=== PATIENT | female | born 1990 | race Caucasian/White ===

== ENCOUNTER → 2016-07-29 | Outpatient (REF) | payer BC, OTHER ==
[~2016-07-29] MED LIST: ACET50TA PO; IBUP600T26 PO; IBUP80TA PO; PRENTAB9 PO
== END ==
LOC: M LAB REF 16:49
PROVIDERS: ATTEND Specialist
DX: Z12.4 Encounter for screening for malignant neoplasm of cervix (principal)

== ENCOUNTER → 2016-09-06 | Outpatient (REF) | payer BC, OTHER ==
[~2016-09-06] MED LIST changes: +CIPR-249 PO; +DICY20TA11 PO; +ULTR50TA8 PO; +ZOFR4TAB3 PO
== END ==
LOC: M LAB REF 17:18
PROVIDERS: ATTEND Specialist
DX: N87.0 Mild cervical dysplasia (principal)

== ENCOUNTER 2016-09-11 14:10 | Emergency (ER) | payer BC, OTHER ==
[~2016-09-11] VITALS: Ht 162.6 cm; Wt 53.7 kg
[~2016-09-11 14:10] MED LIST changes: -CIPR-249 PO; -DICY20TA11 PO; -ULTR50TA8 PO; -ZOFR4TAB3 PO
[2016-09-11] MEDS ORDERED: NS 500 ML IV ONE (14:30)
[2016-09-11] MEDS ORDERED: KETOROLAC 30 MG/ML VIAL (J1885) IV ONE (14:30)
[2016-09-11 14:55] LABS: BASO # 0.1 K/mm3 (0.0-0.2); BASO % 1.3 % (0.0-1.0); EOS % 0.2 % (0.0-3.0); LARGE UNSTAINED CELL # 0.1 K/mm3 (0.0-0.4); LARGE UNSTAINED CELL % 1.6 % (0.0-4.0); LYMPH # 0.4 K/mm3 (1.5-6.5); LYMPH % 4.1 % (24.0-44.0); MEAN CORPUSCULAR HEMOGLOBIN 29.3 pg (27.0-33.0); MEAN CORPUSCULAR HGB CONC 33.1 g/dl (32.0-36.5); MEAN CORPUSCULAR VOLUME 88.5 fl (80.0-96.0); MONO # 0.6 K/mm3 (0.0-0.8); MONO % 6.8 % (0.0-5.0); NEUTROPHILS # 7.5 K/mm3 (1.8-7.7); NEUTROPHILS % 86.1 % (36.0-66.0); PLATELET COUNT, AUTOMATED 189 k/mm3 (150-450); RED CELL DISTRIBUTION WIDTH 13.3 % (11.5-14.5); WHITE BLOOD COUNT 8.6 K/mm3 (4.0-10.0)
[2016-09-11 15:13] LABS: ALBUMIN/GLOBULIN RATIO 1.14 (1.00-1.93); ALKALINE PHOSPHATASE 44 U/L (45-117); ALT/SGPT 16 U/L (12-78); AMYLASE 28 U/L (25-115); ANION GAP 7 MEQ/L (8-16); AST/SGOT 12 U/L (15-37); BILIRUBIN,DIRECT 0.1 MG/DL (0.0-0.2); BILIRUBIN,TOTAL 0.4 MG/DL (0.2-1.0); BLOOD UREA NITROGEN 8 MG/DL (7-18); CALCIUM LEVEL 8.8 MG/DL (8.5-10.1); CARBON DIOXIDE LEVEL 27 MEQ/L (21-32); CHLORIDE LEVEL 102 MEQ/L (98-107); CREATININE FOR GFR 0.62 MG/DL (0.55-1.02); GLOMERULAR FILTRATION RATE > 60.0 (>60); GLUCOSE, FASTING 97 MG/DL (70-105); POTASSIUM SERUM 3.4 MEQ/L (3.5-5.1); SODIUM LEVEL 136 MEQ/L (136-145); TOTAL PROTEIN 7.5 GM/DL (6.4-8.2)
[2016-09-11] MEDS ORDERED: ACETAMINOPHEN 325 MG TAB PO ONE (15:30)
[2016-09-11 15:59] VITALS: BP 101/62
[2016-09-11] MEDS ORDERED: CIPR-249 PO (16:17)
[2016-09-11] MEDS ORDERED: ZOFR4TAB3 PO (16:17)
[2016-09-11] MEDS ORDERED: ULTR50TA8 PO (16:17)
--- NOTE | 2016-09-12 12:11 | REP ---
RIGHT UPPER QUADRANT ULTRASOUND: 09/11/2016. Clinical history: Right upper quadrant pain, nausea and vomiting. Pain radiates to back. Evaluate for acute cholecystitis or other. There are no prior abdominal ultrasounds. A renal ultrasound 07/20/2008 is reviewed. Sonographic evaluation of the right upper quadrant shows the liver homogeneous in echotexture. There is no focal hepatic mass, intrahepatic biliary dilatation nor adjacent ascites. The gallbladder shows small echogenic but nonshadowing foci which were not mobile. These may be adherent stones or small polyps, the largest of these is 6 mm. The wall thickness is 2.5 mm maximum. No pericholecystic fluid. No sonographic Guerra sign. The common duct is 2.4 mm without dilatation or stone. Pancreas is unremarkable. The right kidney measures 11.5 x 6.5 x 3.8 cm. There is an extrarenal pelvis but the hydronephrosis on the 2008 study is resolved. That was related to hydronephrosis of . Impression: 1. There are a few echogenic nonshadowing foci in the gallbladder wall which are not mobile, the largest of which is 6 mm suggesting a polyp versus adherent stone. No sonographic Guerra sign. Normal wall thickness 2.5 mm with no pericholecystic fluid. 2. The liver homogeneous without focal mass, biliary dilatation or ascites. 3. Common duct 2.4 mm unremarkable. Pancreas and right kidney without acute finding. Signed by Martell Bautista MD 09/12/2016 09:31 A
--- NOTE | 2016-09-12 18:45 | ED PDOC ---
Post-Departure Follow-Up radiology report faxed to Ines Aguilar MD Sep 12, 2016 18:45
[2016-11-07] MEDS ORDERED: DICY20TA11 PO (14:02)
== END 2016-09-11 16:31 | disposition home or self-care (01) ==
LOC: M ED 15:51
DX: K80.20 Calculus of gallbladder without cholecystitis without obstruction (principal)

== ENCOUNTER → 2016-11-08 | Outpatient (CLI) | payer OTHER ==
[~2016-11-08] MED LIST changes: +CIPR-249 PO; +DICY20TA11 PO; +ULTR50TA8 PO; +ZOFR4TAB3 PO
[2016-11-08 13:40] LABS: FREE T4 0.92 NG/DL (0.76-1.46)
== END ==
LOC: M LAB 12:20
PROVIDERS: ATTEND Internal Medicine Gastroenterology
DX: R63.4 Abnormal weight loss (principal)

== ENCOUNTER 2016-11-11 13:27 | Outpatient (CLI) | payer OTHER ==
[~2016-11-11] VITALS: Ht 162.6 cm; Wt 52.2 kg
[2016-11-11] MEDS ORDERED: NS 1,000 ML IV ONE (13:30)
[2016-11-11] MEDS ORDERED: PROPOFOL 200 MG/20 ML VIAL As Ordered ONE (14:38)
[2016-11-11] MEDS ORDERED: LIDOCAINE 2% INJ 100 MG/5 ML SDV (FOR ANES.) As Ordered ONE (14:44)
--- NOTE | 2016-11-11 15:06 | ROOR ---
Patient Name: Maureen Paulino Procedure Date: 11/11/2016 2:50 PM Date of : 1990 Age: 26 Room: [facility] Gender: Female Note Status: Finalized Procedure: Upper GI endoscopy Indications: Epigastric abdominal pain, Diarrhea, Endoscopy to assess diarrhea in patient suspected of having disease of the small-bowel Providers: Jose Eduardo REED MD Referring MD: 1. No Referring Physician 1. No Referring Physician, Admin. Requesting Provider: Medicines: Monitored Anesthesia Care Complications: No immediate complications. Procedure: Pre-Anesthesia Assessment: - The heart rate, respiratory rate, oxygen saturations, blood pressure, adequacy of pulmonary ventilation, and response to care were monitored throughout the procedure. The Endoscope was introduced through the mouth, and advanced to the second part of duodenum. The upper GI endoscopy was accomplished without difficulty. The patient tolerated the procedure well. Findings: The esophagus was normal. The stomach was normal. The examined duodenum was normal. Biopsies for histology were taken with a cold forceps in the third portion of the duodenum for evaluation of celiac disease. Impression: - Normal esophagus. - Normal stomach. - Normal examined duodenum. - Biopsies were taken with a cold forceps for evaluation of celiac disease. Recommendation: - Await pathology results. - Telephone endoscopist for pathology results in 2 weeks. - Stop Dicyclomine, start Hyoscyamine (script sent to your pharmacy) Jose Eduardo Reed MD Jose Eduardo REED MD 11/11/2016 3:05:57 PM This report has been signed electronically. Number of Addenda: 0 Note Initiated On: 11/11/2016 2:50 PM Estimated Blood Loss: Estimated blood loss: none.
--- NOTE | 2016-11-11 15:37 | ROOR ---
Patient Name: Maureen Paulino Procedure Date: 11/11/2016 2:51 PM Date of : 1990 Age: 26 Room: [facility] Gender: Female Note Status: Finalized Procedure: Colonoscopy Indications: Generalized abdominal pain, Irritable bowel syndrome with diarrhea, Diarrhea Providers: Jose Eduardo REED MD Referring MD: 1. No Referring Physician 1. No Referring Physician, Admin. Requesting Provider: Medicines: Monitored Anesthesia Care Complications: No immediate complications. Procedure: Pre-Anesthesia Assessment: - The heart rate, respiratory rate, oxygen saturations, blood pressure, adequacy of pulmonary ventilation, and response to care were monitored throughout the procedure. The Colonoscope was introduced through the anus and advanced to 5 cm into the ileum. The colonoscopy was performed without difficulty. The patient tolerated the procedure well. The quality of the bowel preparation was good. Findings: The perianal and digital rectal examinations were normal. The entire examined colon appeared normal on direct and retroflexion views. A localized area of mucosa in the terminal ileum was nodular. Biopsies were taken with a cold forceps for histology. Impression: - The entire colon is normal on direct and retroflexion views. - Normal terminal ileum with an area of nodular mucosa . Biopsied. Recommendation: - Use fiber, for example Citrucel, Fibercon, Konsyl or Metamucil. - Use Levbid 0.375 mg Extended Tabs 1 tab PO BID. - Telephone endoscopist for pathology results in 2 weeks. - Stop Dicyclomine, start Hyoscyamine.(script sent to your pharmacy). Jose Eduardo Reed MD Jose Eduardo REED MD 11/11/2016 3:37:06 PM This report has been signed electronically. Number of Addenda: 0 Note Initiated On: 11/11/2016 2:51 PM Estimated Blood Loss: Estimated blood loss: none.
[2016-11-11 15:45] VITALS: BP 116/78
== END 2016-11-11 15:50 | disposition home or self-care (01) ==
LOC: M OPP 13:27
PROVIDERS: ATTEND Internal Medicine Gastroenterology
DX: R10.84 Generalized abdominal pain (principal); K58.0 Irritable bowel syndrome with diarrhea; K63.89 Other specified diseases of intestine; R10.13 Epigastric pain; R11.0 Nausea; Z79.899 Other long term (current) drug therapy; Z80.9 Family history of malignant neoplasm, unspecified

== ENCOUNTER 2017-04-08 13:01 | Emergency (ER) | payer OTHER ==
[2017-04-08] MEDS: BACTRIM 160MG/800MG DS TAB PO (14:58)
== END 2017-04-08 15:05 | disposition home or self-care (01) ==
LOC: M ED 13:01
DX: S02.2XXA Fracture of nasal bones, initial encounter for closed fracture (principal); S00.81XA Abrasion of other part of head, initial encounter; S00.83XA Contusion of other part of head, initial encounter; Y04.2XXA Assault by strike against or bumped into by another person, initial encounter; Y92.099 Unspecified place in other non-institutional residence as the place of occurrence of the external cause; Y93.9 Activity, unspecified
CPT/HCPCS: 70450

== ENCOUNTER → 2017-06-08 | Outpatient (REF) | payer OTHER | LOC: M LAB REF 12:51 | DX: N39.0 Urinary tract infection, site not specified (principal) ==

== ENCOUNTER → 2017-09-12 | Outpatient (REF) | payer OTHER | LOC: M LAB REF 12:04 | DX: N39.0 Urinary tract infection, site not specified (principal) ==

== ENCOUNTER → 2017-10-24 | Outpatient (REF) | payer OTHER ==
[2017-10-26 14:17] LABS: HPV HYBRID CAPTURE II Negative (Negative)
== END ==
LOC: M LAB REF 17:57
DX: Z11.51 Encounter for screening for human papillomavirus (HPV) (principal)
CPT/HCPCS: G0123

== ENCOUNTER → 2017-12-28 | Outpatient (REF) | payer OTHER | LOC: M LAB REF 17:04 | DX: R35.0 Frequency of micturition (principal) ==

== ENCOUNTER → 2018-04-21 | Outpatient (REF) | payer OTHER ==
[~2018-04-21] MED LIST changes: +BACT800T5 PO; +KEFL500C17 PO; +ZOFR4TAB14 PO; -ZOFR4TAB3 PO
== END ==
LOC: M LAB REF 10:56
PROVIDERS: ATTEND Physician Assistant
DX: N39.0 Urinary tract infection, site not specified (principal)

== ENCOUNTER 2018-05-04 13:07 | Day surgery (SDC) | payer OTHER ==
[~2018-05-04] VITALS: Ht 162.6 cm; Wt 53.5 kg
[~2018-05-04 13:07] MED LIST changes: +KETOROLAC 60 MG/2 ML VIAL (J1885) As Ordered ONE; +LIDOCAINE 2% INJ 100 MG/5 ML SDV (FOR ANES.) As Ordered ONE; +LR 1,000 ML IV ONE; +MIDAZOLAM INJ 2 MG/2 ML VIAL (J2250) As Ordered ONE; +ONDANSETRON 4MG/2ML VIAL (J2405) As Ordered ONE; +PROPOFOL 200 MG/20 ML VIAL As Ordered ONE; +dexameTHASONE 4 MG/ML 1ML VIAL (J1100) As Ordered ONE; +fentaNYL 100 MCG/2 ML INJECTION (J3010) As Ordered ONE
[2018-05-04 13:36] LABS: HEMOGLOBIN 12.8 g/dl (12.0-15.5); MEAN CORPUSCULAR HGB CONC 32.8 g/dl (32.0-36.5); MEAN CORPUSCULAR VOLUME 91.5 fl (80.0-96.0); PLATELET COUNT, AUTOMATED 244 10^3/uL (150-450); RED BLOOD COUNT 4.26 10^6/uL (4.00-5.40); WHITE BLOOD COUNT 8.6 10^3/uL (4.0-10.0)
[2018-05-04 13:39] LABS: URINE PREG TEST NEGATIVE (NEGATIVE)
[2018-05-04] MEDS ORDERED: LR 1,000 ML IV SCH (15:00)
[2018-05-04] MEDS ORDERED: HYDROMORPHONE HCL 0.5 MG/ 0.5 ML SYRINGE (J1170 PER 1) IV PRN (15:15)
[2018-05-04] MEDS ORDERED: fentaNYL 100 MCG/2 ML INJECTION (J3010) IV PRN (15:15)
[2018-05-04] MEDS ORDERED: PERCOCET 5MG/325MG TAB PO PRN ×2 (15:15)
[2018-05-04] MEDS ORDERED: OXYC1TAB23 PO (15:30)
[2018-05-04 16:25] VITALS: BP 127/81
--- NOTE | 2018-05-07 15:03 | RO ---
DATE OF PROCEDURE: 05/04/2018 PREOPERATIVE DIAGNOSIS: Menorrhagia. POSTOPERATIVE DIAGNOSIS: Menorrhagia. PROCEDURE: Hysteroscopy, dilation and curettage, NovaSure endometrial ablation. SURGEON: Rush Daniel MD GAS TORCH BRAZIER: ANESTHESIA: General endotracheal. ESTIMATED BLOOD LOSS: Minimal. URINE OUTPUT: 30 mL. FINDINGS: Normal endometrial cavity. Normal retroverted uterus. OPERATIVE SUMMARY: The patient was taken to the operating room where general endotracheal anesthesia was induced. She was prepped and draped in sterile fashion in the dorsal lithotomy position. The bladder was then secured to the catheter. A speculum was placed. The anterior lip of the cervix was grasped with a tenaculum. The cervix was dilated with tapered dilators. A sharp curettage was performed and the specimen was sent to pathology. Uterine cavity length was calculated 4.0 cm. A NovaSure device was assembled and found to be in working order. The device was inserted through the internal os. Cavity width was 4.6 cm. Total power setting was 101 godfrey. A successful cavity assessment was performed. The device was enabled and coagulation was initiated. Total coagulation time was 2 minutes. The device was removed. The hysteroscope was placed back in the endometrial cavity and excellent coagulation was noted throughout the endometria. All instruments were removed. Sponge and instrument counts were correct. The patient went to recovery room in stable condition.
== END 2018-05-04 16:35 | disposition home or self-care (01) ==
LOC: M SDC 13:07
PROVIDERS: ATTEND Specialist
DX: N92.0 Excessive and frequent menstruation with regular cycle (principal)
CPT/HCPCS: 36415; 58563; 84703; 85027; 88305; J1100; J1885; J2250; J2405; J3010

== ENCOUNTER 2018-05-15 12:34 | Emergency (ER) | payer OTHER ==
[~2018-05-15] VITALS: Ht 162.6 cm; Wt 54.5 kg
[2018-05-15 12:34] VITALS: BP 152/95
[~2018-05-15 12:34] MED LIST changes: -KETOROLAC 60 MG/2 ML VIAL (J1885) As Ordered ONE; -LIDOCAINE 2% INJ 100 MG/5 ML SDV (FOR ANES.) As Ordered ONE; -LR 1,000 ML IV ONE; -MIDAZOLAM INJ 2 MG/2 ML VIAL (J2250) As Ordered ONE; -ONDANSETRON 4MG/2ML VIAL (J2405) As Ordered ONE; +OXYC1TAB23 PO; -PROPOFOL 200 MG/20 ML VIAL As Ordered ONE; -dexameTHASONE 4 MG/ML 1ML VIAL (J1100) As Ordered ONE; -fentaNYL 100 MCG/2 ML INJECTION (J3010) As Ordered ONE
--- NOTE | 2018-05-15 13:07 | REP ---
Clinical: Trauma. Technique: AP, lateral, bilateral oblique views of the right hand. Findings: Oblique nondisplaced fracture of the fifth metacarpal diaphysis noted. Remainder examination is normal. Impression: Oblique fracture of the fifth metacarpal shaft. Electronically Signed by Evens Swan MD 05/15/2018 12:59 P
== END 2018-05-15 15:00 | disposition home or self-care (01) ==
LOC: M ED 12:34
DX: S62.356A Nondisplaced fracture of shaft of fifth metacarpal bone, right hand, initial encounter for closed fracture (principal); W01.198A Fall on same level from slipping, tripping and stumbling with subsequent striking against other object, initial encounter; Y92.89 Other specified places as the place of occurrence of the external cause; Y99.0 Civilian activity done for income or pay

== ENCOUNTER → 2018-09-15 | Outpatient (REF) | payer OTHER ==
[~2018-09-15] MED LIST changes: -ACET50TA PO; +MAPA500T17 PO
== END ==
LOC: M LAB REF 12:30
PROVIDERS: ATTEND Physician Assistant Medical
DX: N39.0 Urinary tract infection, site not specified (principal)

== ENCOUNTER → 2018-09-25 | Outpatient (REF) | payer OTHER ==
[2018-09-28 00:07] LABS: HPV HYBRID CAPTURE II Positive (Negative)
== END ==
LOC: M LAB REF 13:22
PROVIDERS: ATTEND Specialist
DX: Z12.4 Encounter for screening for malignant neoplasm of cervix (principal); R87.612 Low grade squamous intraepithelial lesion on cytologic smear of cervix (LGSIL)
CPT/HCPCS: 87624; G0123

== ENCOUNTER → 2018-11-07 | Outpatient (REF) | payer OTHER | LOC: M LAB REF 13:27 | PROVIDERS: ATTEND Specialist | DX: R87.612 Low grade squamous intraepithelial lesion on cytologic smear of cervix (LGSIL) (principal) ==

== ENCOUNTER → 2019-11-11 | Outpatient (REF) | payer OTHER | LOC: M LAB REF 15:06 | PROVIDERS: ATTEND Specialist | DX: Z12.4 Encounter for screening for malignant neoplasm of cervix (principal); R87.613 High grade squamous intraepithelial lesion on cytologic smear of cervix (HGSIL) ==

== ENCOUNTER → 2019-12-18 | Outpatient (CLI) | payer OTHER ==
[2019-12-18 16:50] LABS: BASO # 0.1 10^3/uL (0.0-0.2); BASO % 0.8 % (0.0-1.0); EOS # 0.5 10^3/uL (0.0-0.5); EOS % 6.3 % (0.0-3.0); HEMATOCRIT 38.5 % (36.0-47.0); HEMOGLOBIN 12.7 g/dl (12.0-15.5); LYMPH # 2.8 10^3/uL (1.5-5.0); LYMPH % 36.1 % (24.0-44.0); MEAN CORPUSCULAR HEMOGLOBIN 30.5 pg (27.0-33.0); MEAN CORPUSCULAR VOLUME 92.3 fl (80.0-96.0); MONO # 0.6 10^3/uL (0.0-0.8); MONO % 8.2 % (0.0-5.0); NEUTROPHILS # 3.8 10^3/uL (1.5-8.5); NEUTROPHILS % 48.5 % (36.0-66.0); PLATELET COUNT, AUTOMATED 270 10^3/uL (150-450); RED BLOOD COUNT 4.17 10^6/uL (4.00-5.40); WHITE BLOOD COUNT 7.8 10^3/uL (4.0-10.0)
[2019-12-18 17:16] LABS: FREE T4 0.87 NG/DL (0.76-1.46); THYROID STIMULATING HORMONE 2.33 uIU/ML (0.358-3.740)
== END ==
LOC: M WUC 14:08
PROVIDERS: ATTEND Nurse Practitioner Family
DX: R53.82 Chronic fatigue, unspecified (principal)

== ENCOUNTER → 2020-01-09 | Outpatient (REF) | payer OTHER | LOC: M SFHCWAGY 17:49 | PROVIDERS: ATTEND Specialist | DX: Z01.89 Encounter for other specified special examinations (principal) ==

== ENCOUNTER → 2020-03-11 | Outpatient (CLI) | payer SELFPAY | LOC: M LABSMTC 12:23 | PROVIDERS: ATTEND Pediatrics | DX: Z11.59 Encounter for screening for other viral diseases (principal) ==

== ENCOUNTER → 2020-06-22 | Outpatient (CLI) | payer OTHER ==
--- NOTE | 2020-06-22 08:55 | REP ---
INDICATION: R10.2 ACUTE PELVIC PAIN COMPARISON: None. TECHNIQUE: Transabdominal pelvic ultrasound followed by transvaginal examination for better evaluation of the endometrium and adnexa with color Doppler evaluation of the ovaries. FINDINGS: Bladder is collapsed. Heterogeneous retroflexed uterus measures 6.3 x 3.6 x 3.0 cm. The endometrial complex measures 3.0 mm thickness. 8 x 5 x 6 mm and 8 x 6 x 10 mm uterine cysts noted, simple/benign in appearance, and otherwise nonspecific. Bilateral ovaries are normal in appearance and vascularity without evidence for torsion. Few bilateral follicles noted. Right ovary measures 2.9 x 2.1 x 2.5 cm; R I = 0.60. Left ovary measures 3.1 x 1.6 x 2.0 cm; R I = 0.60. Small amount of free fluid identified adjacent to the uterine fundus. IMPRESSION: Small benign-appearing uterine cysts. Otherwise normal pelvic ultrasound. <Electronically signed by Evens Swan > 06/22/20 [id number]
== END ==
LOC: M WHC 07:50
PROVIDERS: ATTEND Specialist
DX: N85.8 Other specified noninflammatory disorders of uterus (principal)

== ENCOUNTER → 2021-03-16 | Outpatient (REF) | payer OTHER | LOC: M SFHCLERA 11:59 | PROVIDERS: ATTEND Nurse Practitioner Family | DX: R39.9 Unspecified symptoms and signs involving the genitourinary system (principal) ==

== ENCOUNTER → 2021-04-19 | Outpatient (CLI) | payer OTHER ==
[~2021-04-19] MED LIST changes: -DICY20TA11 PO; +DICY20TA20 PO
== END ==
LOC: M LABSMTC 12:19
PROVIDERS: ATTEND Pediatrics
DX: Z11.52 Encounter for screening for COVID-19 (principal)

== ENCOUNTER → 2022-01-05 | Outpatient (CLI) | payer OTHER | LOC: M SLEEP HO 08:50 | PROVIDERS: ATTEND Nurse Practitioner Family | DX: R06.83 Snoring (principal) ==

== ENCOUNTER → 2022-07-18 | Outpatient (CLI) | payer OTHER | LOC: M ADAMS 10:52 | PROVIDERS: ATTEND Physician Assistant | DX: S16.1XXA Strain of muscle, fascia and tendon at neck level, initial encounter (principal); W18.30XA Fall on same level, unspecified, initial encounter; Y92.009 Unspecified place in unspecified non-institutional (private) residence as the place of occurrence of the external cause ==

== ENCOUNTER → 2023-01-12 | Outpatient (CLI) | payer OTHER ==
[~2023-01-12] MED LIST changes: +GASTROGRAFIN SOLUTION 30ML As Ordered ONE; +ISOVUE-370 76% 100ML VIAL As Ordered ONE
== END ==
LOC: M RAD 09:07
PROVIDERS: ATTEND Physician Assistant
DX: R10.31 Right lower quadrant pain (principal)
CPT/HCPCS: 74177; Q9963; Q9967

== ENCOUNTER → 2024-03-26 | Outpatient (CLI) | payer OTHER ==
[~2024-03-26] MED LIST changes: -GASTROGRAFIN SOLUTION 30ML As Ordered ONE; -ISOVUE-370 76% 100ML VIAL As Ordered ONE
== END ==
LOC: M PLAIMG 10:54
DX: M54.2 Cervicalgia (principal)

== ENCOUNTER → 2024-03-26 | Outpatient (REF) | payer OTHER ==
[2024-03-26 19:14] LABS: BASO # 0.1 10^3/uL (0.0-0.2); EOS # 0.5 10^3/uL (0.0-0.5); HEMATOCRIT 39.9 % (36.0-47.0); LYMPH # 1.9 10^3/uL (1.5-5.0); LYMPH % 27.7 % (24.0-44.0); MEAN CORPUSCULAR HEMOGLOBIN 30.7 pg (27.0-33.0); MEAN CORPUSCULAR HGB CONC 32.6 g/dl (32.0-36.5); MEAN CORPUSCULAR VOLUME 94.1 fl (80.0-96.0); MONO # 0.7 10^3/uL (0.0-0.8); MONO % 10.9 % (2.0-8.0); NEUTROPHILS # 3.6 10^3/uL (1.5-8.5); NEUTROPHILS % 53.3 % (36.0-66.0); PLATELET COUNT, AUTOMATED 278 10^3/uL (150-450); RED BLOOD COUNT 4.24 10^6/uL (4.00-5.40); WHITE BLOOD COUNT 6.7 10^3/uL (4.0-10.0)
[2024-03-26 19:29] LABS: ALBUMIN 4.2 G/DL (3.2-5.2); ALKALINE PHOSPHATASE 47 U/L (35-104); ALT/SGPT 36 U/L (7.0-40); AST/SGOT 19 U/L (<34); BILIRUBIN,TOTAL 0.6 MG/DL (0.3-1.2); BLOOD UREA NITROGEN 14 MG/DL (9-23); CARBON DIOXIDE LEVEL 28 MMOL/L (20-31); CHLORIDE LEVEL 103 MMOL/L (98-107); CREATININE FOR GFR 0.58 MG/DL (0.55-1.30); FREE T4 1.14 NG/DL (0.89-1.76); GLOMERULAR FILTRATION RATE > 60.0 (>60); GLUCOSE, FASTING 95 MG/DL (60-100); POTASSIUM SERUM 4.1 MMOL/L (3.5-5.1); SODIUM LEVEL 140 MMOL/L (136-145); THYROID STIMULATING HORMONE 2.344 uIU/ML (0.55-4.78); TOTAL 25(OH) VITAMIN D 23.3 NG/ML (20.0-100.0); TOTAL PROTEIN 7.7 G/DL (5.7-8.2)
== END ==
LOC: M SFHCLERA 09:44
DX: R53.82 Chronic fatigue, unspecified (principal); K58.1 Irritable bowel syndrome with constipation; F41.8 Other specified anxiety disorders; E55.9 Vitamin D deficiency, unspecified